=== PATIENT | male | born 1980 ===

== ENCOUNTER → 2018-01-04 | Emergency (ER) | payer OTHER ==
[~2018-01-04] VITALS: Ht 182.9 cm; Wt 99.8 kg
[~2018-01-04] MED LIST: BENADRYL25 MG PO; CORTIZONE-10 PL28 GM TOP; LEVAQUIN750 MG PO
== END | disposition home or self-care (01) ==
LOC: ER 10:24
DX: S50.861A Insect bite (nonvenomous) of right forearm, initial encounter (principal); S80.862A Insect bite (nonvenomous), left lower leg, initial encounter; S80.861A Insect bite (nonvenomous), right lower leg, initial encounter; R21 Rash and other nonspecific skin eruption; W57.XXXA Bitten or stung by nonvenomous insect and other nonvenomous arthropods, initial encounter; Y93.89 Activity, other specified; Y92.89 Other specified places as the place of occurrence of the external cause; Y99.8 Other external cause status

== ENCOUNTER 2019-03-10 20:22 | Emergency (ER) | payer OTHER ==
[~2019-03-10] VITALS: Ht 172.7 cm; Wt 86.2 kg
[2019-03-10] MEDS ORDERED: MICARDIS20 MG (20:38)
[2019-03-10] MEDS ORDERED: ZANTAC150 M3 (20:38)
== END 2019-03-10 22:25 | disposition home or self-care (01) ==
LOC: ER 20:22
DX: G44.209 Tension-type headache, unspecified, not intractable (principal)